=== PATIENT | male | born 1945 | race Hispanic/Latino ===

== ENCOUNTER 2020-07-22 | Emergency (ER) | payer SELFPAY ==
[~2020-07-22] MED LIST: AMOX/K CLAV875 M1 PO; AUGMENTIN875TAB PO; MAXZIDE PO; PROAIR HFA IN
[2020-07-22] MEDS ORDERED: KEFLEX500 MG PO (11:27)
== END 2020-07-22 11:42 | disposition home or self-care (01) | DRG 153 ==
DX: J06.9 Acute upper respiratory infection, unspecified (principal); Z20.822 Contact with and (suspected) exposure to COVID-19